=== PATIENT | male | born 1945 | race Caucasian/White ===

== ENCOUNTER 2018-03-12 19:29 | Emergency (ER) | payer MEDICARE ==
[~2018-03-12] VITALS: Ht 193 cm; Wt 90.0 kg
[~2018-03-12 19:29] MED LIST: AMLO10TA2 PO; ASPI325T17 PO; LISI-170 PO; OMEP20CA9 PO; PARO20TA98 PO; PRAV20TA2 PO
[2018-03-12 19:39] VITALS: BP 101/58
[2018-03-12] MEDS ORDERED: PROPARACAINE OPHTH 0.5%, 15ML ONE (19:48)
[2018-03-12] MEDS ORDERED: PROPARACAINE OPHTH 0.5%, 15ML LEFTEYE ONE (20:00)
[2018-03-12] MEDS ORDERED: FLUORESCEIN OPHTHALMIC 1 MG STRIP LEFTEYE ONE (20:00)
[2018-03-12] MEDS ORDERED: OXYcodone/APAP 5/325MG TABLET ONE (20:16)
[2018-03-12] MEDS ORDERED: OXYcodone/APAP 5/325MG TABLET PO ONE (21:00)
== END 2018-03-12 20:58 | disposition home or self-care (01) ==
LOC: ED 20:00
DX: S05.02XA Injury of conjunctiva and corneal abrasion without foreign body, left eye, initial encounter (principal); X58.XXXA Exposure to other specified factors, initial encounter; Y93.89 Activity, other specified; Y99.8 Other external cause status; Y92.89 Other specified places as the place of occurrence of the external cause
CPT/HCPCS: 99283